=== PATIENT | male | born 2005 | race Caucasian/White ===

== ENCOUNTER 2025-02-02 18:41 | Emergency (ER) | payer BC ==
[~2025-02-02] VITALS: Ht 182.9 cm; Wt 77.4 kg
[2025-02-02 18:50] VITALS: BP 134/94; PULSE 65; RESP 15; O2SAT 99
[2025-02-02] MEDS ORDERED: NO HOME MEDS (18:52)
[2025-02-02] MEDS ORDERED: HYDR-3686 PO (19:05)
[2025-02-02] MEDS ORDERED: PRED20TA PO (19:05)
[2025-02-02] MEDS: triamcinolone acetonide 40mg/ml inj IM ONE (19:38)
[2025-02-02 19:44] VITALS: TEMP 97.8
== END 2025-02-02 19:45 | disposition home or self-care (01) ==
LOC: ER 18:44
DX: L23.7 Allergic contact dermatitis due to plants, except food (principal); Z79.52 Long term (current) use of systemic steroids
CPT/HCPCS: 96372; 99283; J3301